=== PATIENT | female | born 1990 | race American Indian/Alaskan Native ===

== ENCOUNTER 2017-06-06 10:47 | Emergency (ER) | payer SELFPAY ==
[2017-06-06 11:36] VITALS: BP 120/81
--- NOTE | 2017-06-06 13:07 | Emergency Department Report ---
Blank Doc - Documentation Documentation: 27-year-old female with history of migraines and anemia presents to the hospital with complaints of bilateral breast soreness 2 months. She's also had white intermittent nipple drainage on the left when she squeezes her breasts. No fever, one, erythema reported. Patient also has some lower abdominal discomfort. Negative test 2 weeks ago. Started her menstrual cycle yesterday yesterday. She does not have a SENIOR SUSTAINABILITY CONSULTANT doctor. Focused exam Bladder breasts without gross abnormality. Patient expresses white discharge from the left nipple. No focal swelling, or erythema. Minimal suprapubic tenderness Labs ordered UA Urine Mid-level to see
[2017-06-06 13:31] LABS: Bilirubin,Urine NEG (Negative); Blood,Urine MOD (Negative); Color,Urine Yellow (Yellow); Mucus,Urine FEW /HPF; Protein,Urine <15 mg/dL mg/dL (Negative); Urobilinogen,Urine < 2.0 mg/dL (<2.0)
[2017-06-06 13:32] LABS: HCG Qualitative,Urine Negative (Negative)
--- NOTE | 2017-06-06 15:10 | Emergency Department Report ---
ED General Adult HPI - General Chief complaint: Urogenital-Female Stated complaint: SORE BREASTS Time Seen by Provider: 06/06/17 12:59 Source: patient Mode of arrival: Ambulatory Limitations: No Limitations - History of Present Illness Initial comments: 27-year-old female with history of migraines and anemia presents to the hospital with complaints of bilateral breast soreness 2 months. She's also had white intermittent nipple drainage on the left when she squeezes her breasts. No fever, one, erythema reported. Patient also has some lower abdominal discomfort. Negative test 2 weeks ago. Started her menstrual cycle yesterday. She does not have a TRACK OILER doctor nor does she have a primary care physician. She reports breast pain is 7 out of 10 and feels sore and this is intermittent. Pain is worse with touch.. MD Complaint: nipple drainage and breast soreness Onset/Timin -: month(s) Radiation: non-radiation Severity scale (0 -10): 7 Quality: other (sore) Consistency: intermittent Improves with: rest Worsens with: other (Palpation) Associated Symptoms: denies: confusion, chest pain, cough, diaphoresis, fever/ chills, headaches, loss of appetite, malaise, nausea/vomiting, rash, seizure, shortness of breath, syncope, weakness, other Treatments Prior to Arrival: none - Related Data Home Medications Medication Instructions Recorded Confirmed Last Taken No Known Home Medications [No 04/28/15 04/28/15 Unknown Reported Home Medications] Allergies Allergy/AdvReac Type Severity Reaction Status Date / Time ibuprofen Allergy Swelling Verified 04/28/15 16:00 ED Review of Systems ROS: Stated complaint: SORE BREASTS Other details as noted in HPI Comment: All other systems reviewed and negative Constitutional: no symptoms reported ENT: denies: throat pain Respiratory: no symptoms reported Cardiovascular: denies: chest pain, palpitations, dyspnea on exertion, edema, syncope, paroxysmal nocturnal dyspnea Gastrointestinal: denies: abdominal pain, nausea, vomiting, diarrhea, constipation, hematemesis, melena, hematochezia Genitourinary: other (nipple soreness and drainage). denies: urgency, dysuria, hematuria, discharge, abnormal menses Musculoskeletal: denies: back pain, arthralgia Skin: denies: rash Neurological: denies: headache ED Past Medical Hx - Past Medical History Previous Medical History?: Yes Hx Headaches / Migraines: Yes Additional medical history: anemia - Surgical History Past Surgical History?: Yes Additional Surgical History: control implant, Implenon removed - Family History Family history: cancer (paternal family history of cancer) - Social History Smoking Status: Current Every Day Smoker Substance Use Type: Alcohol - Medications Home Medications: Home Medications Medication Instructions Recorded Confirmed Last Taken Type No Known Home Medications [No 04/28/15 04/28/15 Unknown History Reported Home Medications] ED Physical Exam - General Limitations: No Limitations General appearance: alert, in no apparent distress - Head Head exam: Present: atraumatic, normocephalic, normal inspection - Eye Eye exam: Present: normal appearance, PERRL, EOMI Pupils: Present: normal accommodation - ENT ENT exam: Present: normal exam, normal orophraynx, mucous membranes moist - Neck Neck exam: Present: normal inspection, full ROM. Absent: tenderness, lymphadenopathy - Respiratory Respiratory exam: Present: normal lung sounds bilaterally. Absent: respiratory distress, chest wall tenderness - Cardiovascular Cardiovascular Exam: Present: regular rate, normal rhythm, normal heart sounds - GI/Abdominal GI/Abdominal exam: Present: soft, normal bowel sounds. Absent: distended, tenderness, guarding, rebound, rigid - Extremities Exam Extremities exam: Present: normal inspection, full ROM, normal capillary refill , other (clubbing, cyanosis or edema. +2+ distal extremities and no neurovascular compromise). Absent: tenderness, pedal edema, joint swelling, calf tenderness - Back Exam Back exam: Present: normal inspection, full ROM, other (ambulates without any difficulties). Absent: tenderness, CVA tenderness (R), CVA tenderness (L), muscle spasm, paraspinal tenderness, vertebral tenderness, rash noted - Neurological Exam Neurological exam: Present: alert, oriented X3, normal gait - Psychiatric Psychiatric exam: Present: normal affect, normal mood - Skin Skin exam: Present: warm, dry, intact, normal color. Absent: rash - Other Other exam information: Breast EXAM: Andrew Breast exam breast is symmetrical and sitting position. No bulging noted. Skin has no dimpling or retraction, no edema, ulceration or erythema. No eczema note to breasts. Nipples are symmetric without retraction. No nipple crusting .patient with left nipple discharge, white patient in color with palpation. No odor noted.. No palpable mass , no erythema. No adenopathy to regional lymph nodes to include supraclavicular, infraclavicular and axillary area. ED Course Vital Signs 06/06/17 11:32 Temperature 97.9 F Pulse Rate 60 Respiratory 18 Rate Blood Pressure 120/81 O2 Sat by Pulse 100 Oximetry - Reevaluation(s) Reevaluation #1: 06/06/17 15:57 Patient stable throughout ED stay. ED Medical Decision Making - Lab Data Urinalysis negative except patient with moderate amount of blood but she is currently on her period which started yesterday Urine test is negative - Medical Decision Making ED course: Patient here reports that she has bilateral breast pain and discharge 2 months. Physical findings for normal breast exam except she has scant amount of whitish discharge from her left nipple with palpation. I discussed patient's physical findings and also her urinalysis and test. I also discussed follow-up to include mammogram at this [facility]. She voiced understanding and and nurse reported after I spoke with patient that patient left after instructions. Critical care attestation.: If time is entered above; I have spent that time in minutes in the direct care of this critically ill patient, excluding procedure time. ED Disposition Clinical Impression: Mastalgia in female, Discharge from nipple Disposition: [id number] TO HOME OR SELFCARE Is pt being admited?: No Does the pt Need Aspirin: No Condition: Stable Instructions: Breast Fullness Versus Breast Engorgement (ED) Additional Instructions: Please follow up with [facility] regarding left nipple discharge and bilateral breast soreness that been ongoing for 2 months Take Motrin [id number] per dosing chart Dilantin and distal help with soreness See discharge instruction and mammogram You will need to have mammogram done that will be ordered by [facility] Referrals: [facility] [Outside] - 06/08/17 NORAH YANES MD [Staff Physician] - 06/08/17 Forms: Work/School Release Form(ED)
== END 2017-06-06 15:47 | disposition home or self-care (01) ==
LOC: ED 10:47
DX: N64.4 Mastodynia (principal); G43.909 Migraine, unspecified, not intractable, without status migrainosus; F17.200 Nicotine dependence, unspecified, uncomplicated; Z88.6 Allergy status to analgesic agent
CPT/HCPCS: 81001; 81025; 99283

== ENCOUNTER 2017-08-26 20:40 | Emergency (ER) | payer SELFPAY ==
[2017-08-26] MEDS ORDERED: NACL 0.9% 1000 ML 1,000 ML IV ONE (21:02)
[2017-08-26 21:17] LABS: Basophils % (Auto) 0.7 % (0.0-1.8); Eosinophils % (Auto) 0.6 % (0.0-4.3); Hemoglobin 12.6 gm/dl (10.1-14.3); Lymphocytes # (Auto) 1.8 K/mm3 (1.2-5.4); Lymphocytes % (Auto) 30.6 % (13.4-35.0); Mean Corpuscular HGB Conc 34 % (30-34); Mean Corpuscular Hemoglobin 30 pg (28-32); Mean Corpuscular Volume 89 fl (79-97); Monocytes # (Auto) 0.4 K/mm3 (0.0-0.8); Monocytes % (Auto) 6.9 % (0.0-7.3); Platelet Count 260 K/mm3 (140-440); Red Blood Count 4.16 M/mm3 (3.65-5.03)
[2017-08-26 21:35] LABS: Alanine Aminotransferase 12 units/L (7-56); Albumin 4.7 g/dL (3.9-5); BUN/Creatinine Ratio 10; Blood Urea Nitrogen 8 mg/dL (7-17); Calcium 10.1 mg/dL (8.4-10.2); Hemolysis Index 21; Lipase 22 units/L (13-60)
[2017-08-26] MEDS ORDERED: TYLENOL ONE (21:49)
[2017-08-26 22:11] LABS: Bacteria,Urine 1+ /HPF (Negative); Bilirubin,Urine NEG (Negative); Blood,Urine MOD (Negative); Color,Urine Yellow (Yellow); Mucus,Urine FEW /HPF
[2017-08-26] MEDS ORDERED: TYLENOL PO ONE (22:51)
--- NOTE | 2017-08-26 23:41 | Ultrasound Report ---
FINAL REPORT EXAM: US TRANSVAGINAL HISTORY: severe pelvic pain abn bleeding TECHNIQUE: Ultrasound pelvis transvaginal with pulsed and color Doppler evaluation PRIORS: None. FINDINGS: Uterus is 6.8 x 3.5 x 3.8 centimeters No focal myometrial abnormality identified Endometrial thickness is 0.6 centimeters Right ovary is 2.6 x 2.1 x 2.6 centimeters. Left ovary is 3.1 x 2.8 x 2.6 centimeters. Normal vascular flow on pulsed and color Doppler evaluation. The left ovary is 3.1 x 2.8 x 2.6 centimeters. No abnormal mass or cyst identified. Normal flow on pulsed and color Doppler evaluation. No free fluid identified within the cul-de-sac. IMPRESSION: Normal pelvic ultrasound
--- NOTE | 2017-08-26 23:42 | Ultrasound Report ---
FINAL REPORT EXAM: US PELVIC COMPLETE HISTORY: severe pelvic pain abn bleeding TECHNIQUE: Ultrasound pelvis transabdominal pulsed and color Doppler evaluation PRIORS: None. FINDINGS: Uterus is 6.8 x 3.5 x 3.8 centimeters No focal myometrial abnormality identified Endometrial thickness is 0.6 centimeters Right ovary is 2.6 x 2.1 x 2.6 centimeters. Left ovary is 3.1 x 2.8 x 2.6 centimeters. Normal vascular flow on pulsed and color Doppler evaluation. The left ovary is 3.1 x 2.8 x 2.6 centimeters. No abnormal mass or cyst identified. Normal flow on pulsed and color Doppler evaluation. No free fluid identified within the cul-de-sac. IMPRESSION: Normal pelvic ultrasound
[2017-08-27] MEDS ORDERED: LEVAQUIN PO ONE (01:15)
--- NOTE | 2017-08-27 01:19 | Emergency Department Report ---
ED Abdominal Pain HPI - General Chief Complaint: Abdominal Pain Stated Complaint: ABDOMINAL PAIN Time Seen by Provider: 08/27/17 00:44 Source: patient Mode of arrival: Ambulatory Limitations: No Limitations - History of Present Illness Initial Comments: Ms Gleason is a 27 year-old woman who presents with abdominal pain. Had sudden onset of lower abdominal pain that radiates down her right leg. this evening. No pain with urination. No back pain. Endorses n/v. Normal bowel movements. No blood in urine. just started cycle today. Was just treated for UTI with bactrim. No other complaints MD Complaint: abdominal pain -: Sudden Location: RLQ, suprapubic Migration to: other (leg) Severity: moderate Severity scale (0 -10): 9 Quality: sharp Consistency: constant Improves With: nothing Worsens With: nothing - Related Data LMP Date: 08/26/17 Home Medications Medication Instructions Recorded Confirmed Last Taken No Known Home Medications [No 04/28/15 04/28/15 Unknown Reported Home Medications] Allergies Allergy/AdvReac Type Severity Reaction Status Date / Time ibuprofen Allergy Swelling Verified 04/28/15 16:00 ED Review of Systems ROS: Stated complaint: ABDOMINAL PAIN Other details as noted in HPI Comment: All other systems reviewed and negative ED Past Medical Hx - Past Medical History Hx Headaches / Migraines: Yes Additional medical history: anemia - Surgical History Additional Surgical History: control implant, Implenon removed - Social History Smoking Status: Current Every Day Smoker Substance Use Type: Alcohol - Medications Home Medications: Home Medications Medication Instructions Recorded Confirmed Last Taken Type No Known Home Medications [No 04/28/15 04/28/15 Unknown History Reported Home Medications] ED Physical Exam - General Limitations: No Limitations General appearance: alert, in no apparent distress - Head Head exam: Present: atraumatic, normocephalic - Eye Eye exam: Present: normal appearance - ENT ENT exam: Present: normal exam, mucous membranes moist - Neck Neck exam: Present: normal inspection. Absent: tenderness - Respiratory Respiratory exam: Present: normal lung sounds bilaterally. Absent: respiratory distress, wheezes, rales - Cardiovascular Cardiovascular Exam: Present: regular rate, normal rhythm. Absent: systolic murmur, diastolic murmur, rubs, gallop - GI/Abdominal GI/Abdominal exam: Present: soft, tenderness, other (suprapubic ttp. No RLQ or LLQ ttp). Absent: distended, rebound - Extremities Exam Extremities exam: Present: normal inspection, full ROM. Absent: tenderness, pedal edema, joint swelling - Back Exam Back exam: Present: normal inspection - Neurological Exam Neurological exam: Present: alert, oriented X3, normal gait. Absent: motor sensory deficit - Psychiatric Psychiatric exam: Present: normal affect, normal mood - Skin Skin exam: Present: warm, dry, intact, normal color. Absent: rash ED Course Vital Signs 08/26/17 08/27/17 22:51 01:02 Temperature 98.1 F Pulse Rate 68 Respiratory 18 16 Rate Blood Pressure 104/61 [Left] O2 Sat by Pulse 99 Oximetry ED Medical Decision Making - Lab Data Result diagrams: 08/26/17 21:05 08/26/17 21:05 Lab Results 08/26/17 08/26/17 08/26/17 Range/Units 21:05 21:05 21:05 WBC 5.8 (4.5-11.0) K/mm3 RBC 4.16 (3.65-5.03) M/mm3 Hgb 12.6 (10.1-14.3) gm/dl Hct 37.0 (30.3-42.9) % MCV 89 (79-97) fl MCH 30 (28-32) pg MCHC 34 (30-34) % RDW 14.0 (13.2-15.2) % Plt Count 260 (140-440) K/mm3 Lymph % (Auto) 30.6 (13.4-35.0) % [place] % (Auto) 6.9 (0.0-7.3) % Eos % (Auto) 0.6 (0.0-4.3) % Baso % (Auto) 0.7 (0.0-1.8) % Lymph # 1.8 (1.2-5.4) K/mm3 [place] # 0.4 (0.0-0.8) K/mm3 Eos # 0.0 (0.0-0.4) K/mm3 Baso # 0.0 (0.0-0.1) K/mm3 Seg Neutrophils % 61.2 (40.0-70.0) % Seg Neutrophils # 3.6 (1.8-7.7) K/mm3 Sodium 142 (137-145) mmol/L Potassium 4.5 (3.6-5.0) mmol/L Chloride 100.7 (98-107) mmol/L Carbon Dioxide 23 (22-30) mmol/L Anion Gap 23 mmol/L BUN 8 (7-17) mg/dL Creatinine 0.8 (0.7-1.2) mg/dL Estimated GFR > 60 ml/min BUN/Creatinine Ratio 10 % Glucose 110 H (65-100) mg/dL Calcium 10.1 (8.4-10.2) mg/dL Total Bilirubin 0.20 (0.1-1.2) mg/dL AST 23 (5-40) units/L ALT 12 (7-56) units/L Alkaline Phosphatase 45 (35-129) units/L Total Protein 7.9 (6.3-8.2) g/dL Albumin 4.7 (3.9-5) g/dL Albumin/Globulin Ratio 1.5 % Lipase 22 (13-60) units/L HCG, Quant < 2 (0-4) mIU/mL Urine Color (Yellow) Urine Turbidity (Clear) Urine pH (5.0-7.0) Ur Specific [place] (1.003-1.030) Urine Protein (Negative) mg/dL Urine Glucose (UA) (Negative) mg/dL Urine Ketones (Negative) mg/dL Urine Blood (Negative) Urine Nitrite (Negative) Urine Bilirubin (Negative) Urine Urobilinogen (<2.0) mg/dL Ur Leukocyte Esterase (Negative) Urine WBC (Auto) (0.0-6.0) /HPF Urine RBC (Auto) (0.0-6.0) /HPF U Epithel Cells (Auto) (0-13.0) /HPF Urine Bacteria (Auto) (Negative) /HPF Urine Mucus /HPF 08/26/17 Range/Units 21:35 WBC (4.5-11.0) K/mm3 RBC (3.65-5.03) M/mm3 Hgb (10.1-14.3) gm/dl Hct (30.3-42.9) % MCV (79-97) fl MCH (28-32) pg MCHC (30-34) % RDW (13.2-15.2) % Plt Count (140-440) K/mm3 Lymph % (Auto) (13.4-35.0) % [place] % (Auto) (0.0-7.3) % Eos % (Auto) (0.0-4.3) % Baso % (Auto) (0.0-1.8) % Lymph # (1.2-5.4) K/mm3 [place] # (0.0-0.8) K/mm3 Eos # (0.0-0.4) K/mm3 Baso # (0.0-0.1) K/mm3 Seg Neutrophils % (40.0-70.0) % Seg Neutrophils # (1.8-7.7) K/mm3 Sodium (137-145) mmol/L Potassium (3.6-5.0) mmol/L Chloride (98-107) mmol/L Carbon Dioxide (22-30) mmol/L Anion Gap mmol/L BUN (7-17) mg/dL Creatinine (0.7-1.2) mg/dL Estimated GFR ml/min BUN/Creatinine Ratio % Glucose (65-100) mg/dL Calcium (8.4-10.2) mg/dL Total Bilirubin (0.1-1.2) mg/dL AST (5-40) units/L ALT (7-56) units/L Alkaline Phosphatase (35-129) units/L Total Protein (6.3-8.2) g/dL Albumin (3.9-5) g/dL Albumin/Globulin Ratio % Lipase (13-60) units/L HCG, Quant (0-4) mIU/mL Urine Color Yellow (Yellow) Urine Turbidity Clear (Clear) Urine pH 7.0 (5.0-7.0) Ur Specific [place] 1.018 (1.003-1.030) Urine Protein 30 mg/dl (Negative) mg/dL Urine Glucose (UA) Neg (Negative) mg/dL Urine Ketones 20 (Negative) mg/dL Urine Blood Mod (Negative) Urine Nitrite Neg (Negative) Urine Bilirubin Neg (Negative) Urine Urobilinogen 2.0 (<2.0) mg/dL Ur Leukocyte Esterase Mod (Negative) Urine WBC (Auto) 9.0 H (0.0-6.0) /HPF Urine RBC (Auto) 65.0 (0.0-6.0) /HPF U Epithel Cells (Auto) 1.0 (0-13.0) /HPF Urine Bacteria (Auto) 1+ (Negative) /HPF Urine Mucus Few /HPF - Medical Decision Making Ms Gleasno is a 27 year-old woman who presents with acute onset lower abdominal pain at 6pm tonight. No vaginal d/c. just started cycle. Recent UTI. Exam with isolated suprapubic ttp. No RLQ or LLQ ttp, even to deep palpation. No CVA ttp. Suspect this is UTI vs consitpation vs vaginitis. much less likely vaginitis based on history. UA with bacteria, leuk esterase, WBCs and only 1 epithelial. Suspect this is UTI. Will treat with fluorquinolone. Do not have cipro here. dfirst dose levaquin here, home with cipro BID x 7 days and pcp follow-up. LE exam wnl, full ROM hip, knees. NV itnact. Critical care attestation.: If time is entered above; I have spent that time in minutes in the direct care of this critically ill patient, excluding procedure time. ED Disposition Clinical Impression: Urinary tract infection Qualifiers: Urinary tract infection type: acute cystitis Hematuria presence: with hematuria Qualified Code(s): N30.01 - Acute cystitis with hematuria Disposition: - TO HOME OR SELFCARE Is pt being admited?: No Condition: Stable Instructions: Abdominal Pain (ED), Urinary Tract Infection in Women (ED) Referrals: PRIMARY CARE, [Primary Care Provider] - 3-5 Days
[2017-08-27 02:28] VITALS: BP 116/73
== END 2017-08-27 02:34 | disposition home or self-care (01) ==
LOC: ED 20:40
DX: N39.0 Urinary tract infection, site not specified (principal); G43.909 Migraine, unspecified, not intractable, without status migrainosus; F17.200 Nicotine dependence, unspecified, uncomplicated; Z88.6 Allergy status to analgesic agent
CPT/HCPCS: 36415; 76830; 76856; 80053; 81001; 83690; 84702; 85025; 99284

== ENCOUNTER 2018-03-16 23:27 | Emergency (ER) | payer SELFPAY ==
[2018-03-17 00:37] VITALS: BP 110/64
[2018-03-17] MEDS ORDERED: ZOFRAN ODT PO ONE (00:44)
[2018-03-17] MEDS ORDERED: ZOFRAN ODT ONE (00:44)
[2018-03-17] MEDS ORDERED: TYLENOL PO ONE (03:10)
[2018-03-17] MEDS ORDERED: TYLENOL ONE (03:17)
[2018-03-17] MEDS ORDERED: TORADOL IV ONE (05:01)
[2018-03-17] MEDS ORDERED: REGLAN IV ONE (05:01)
[2018-03-17] MEDS ORDERED: BENADRYL IV ONE (05:01)
--- NOTE | 2018-03-17 05:50 | Emergency Department Report ---
ED Headache HPI - General Chief Complaint: Headache Stated Complaint: HEADACHE AND VONITTING Time Seen by Provider: 03/17/18 05:01 - History of Present Illness Initial Comments: 28-year-old -Mal[place] female comes in reporting that she has a headache with nausea and vomiting for 3 hours. Patient denies any trauma. She reports it started about 8:00. She denies any similar headaches. She denies any fever or chills. She has taken nothing for pain. Patient reports that the headache started just probably then I got tight and then he got dull with intense pounding. Patient was given Tylenol in triage which she reports did not help. Patient reports that the light makes her headache more intense. Timing/Duration: 1-3 hours Quality: pressure, throbbing Head Injury Location: global Recent Head Trauma: no recent headache/trauma Modifying Factors: improves with: exposure to light Associated Symptoms: nausea/vomiting. denies: fever/chills, nasal congestion, nasal drainage, seizures, sinus infection, stiff neck, vision changes Allergies/Adverse Reactions: Allergies ibuprofen Allergy (Verified 04/28/15 16:00) Swelling Home Medications: Ambulatory Orders Ciprofloxacin HCl [Cipro] 500 mg PO BID 7 Days #13 tablet 08/27/17 traMADol [Ultram 50 MG tab] 50 mg PO Q6HR PRN #12 tablet 03/17/18 ED Review of Systems ROS: Stated complaint: HEADACHE AND VONITTING Other details as noted in HPI Comment: All other systems reviewed and negative Gastrointestinal: nausea, vomiting Neurological: headache ED Past Medical Hx - Past Medical History Previous Medical History?: Yes Hx Headaches / Migraines: Yes Additional medical history: anemia - Surgical History Past Surgical History?: Yes Additional Surgical History: control implant, Implenon removed - Social History Smoking Status: Former Smoker Substance Use Type: Marijuana - Medications Home Medications: Home Medications Medication Instructions Recorded Confirmed Last Taken Type Ciprofloxacin HCl [Cipro] 500 mg PO BID 7 Days #13 tablet 08/27/17 Unknown Rx traMADol [Ultram 50 MG tab] 50 mg PO Q6HR PRN #12 tablet 03/17/18 Unknown Rx ED Physical Exam - General Limitations: No Limitations General appearance: alert, in no apparent distress - Head Head exam: Present: atraumatic, normocephalic - Eye Eye exam: Present: EOMI - ENT ENT exam: Present: mucous membranes moist - Respiratory Respiratory exam: Present: normal lung sounds bilaterally. Absent: respiratory distress - Cardiovascular Cardiovascular Exam: Present: regular rate, normal rhythm. Absent: systolic murmur, diastolic murmur, rubs, gallop - Back Exam Back exam: Present: normal inspection - Neurological Exam Neurological exam: Present: alert, oriented X3 - Expanded Neurological Exam Expanded Cranial nerves: EOM's Intact: Normal, Gag Reflex: Normal, Tongue Deviation: Normal, Nystagmus: Normal, Facial Sensation: Normal, Facial Palsy with Forehead Movement: Normal, Facial Palsy without Forehead Movement: Normal Cerebellar function: Finger to Nose: Normal, Heel to [place]: Normal, Romberg: Normal Upper motor neuron: Anatoly Neglect: Normal, Pronator Drift: Normal, Babinski Sign: Normal, Sensory Extinction: Normal Sensory exam: Upper Extremity Light Touch: Normal, Upper Extremity Pin Prick: Normal, Upper Extremity Temperature: Normal, UE 2 Point Discrimination: Normal, Lower Extremity Light Touch: Normal, Lower Extremity Pin Prick: Normal, Lower Extremity Temperature: Normal, LE 2 Point Discrimination: Normal Motor strength exam: RUE: 5, LUE: 5, RLE: 5, LLE: 5 Best Eye Response (Mal): (4) open spontaneously Best Motor Response ([place]): (6) obeys commands Best Verbal Response ([place]): (5) oriented Mal Total: 15 ED Course Vital Signs 03/16/18 03/17/18 03/17/18 23:32 03:20 04:20 Temperature 97.6 F Pulse Rate 64 Respiratory 20 18 18 Rate Blood Pressure 110/64 O2 Sat by Pulse 100 Oximetry ED Medical Decision Making - Medical Decision Making Patient has been evaluated by this provider in fast track. Patient's place IV for IV Benadryl, IV Toradol in IV Reglan. She reports the headache has improved a little. Critical care attestation.: If time is entered above; I have spent that time in minutes in the direct care of this critically ill patient, excluding procedure time. ED Disposition Clinical Impression: Headache Qualifiers: Headache type: unspecified Headache chronicity pattern: acute headache Intractability: intractable Qualified Code(s): R51 - Headache Disposition: - TO HOME OR SELFCARE Is pt being admited?: No Does the pt Need Aspirin: No Condition: Stable Instructions: Acute Headache (ED) Additional Instructions: Please take pain medication as prescribed. Please increase her water intake. Follow up with her primary care provider if his symptoms persist or gets worse. Prescriptions: traMADol [Ultram 50 MG tab] 50 mg PO Q6HR PRN #12 tablet PRN Reason: Pain Referrals: CRISELDA ROJAS MD [Primary Care Provider] - 3-5 Days Forms: Accompanied Note, Work/School Release Form(ED)
== END 2018-03-17 06:47 | disposition home or self-care (01) ==
LOC: ED 23:27
DX: R51 Headache (principal)
CPT/HCPCS: 96374; 96375; 99283; J1200; J1885; J2765; Q0162

== ENCOUNTER 2019-06-22 01:42 | Emergency (ER) | payer SELFPAY ==
[2019-06-22 02:04] LABS: Basophils % (Auto) 0.8 % (0.0-1.8); Eosinophils % (Auto) 0.2 % (0.0-4.3); Hematocrit 33.6 % (30.3-42.9); Hemoglobin 11.5 gm/dl (10.1-14.3); Lymphocytes # (Auto) 1.6 K/mm3 (1.2-5.4); Lymphocytes % (Auto) 28.1 % (13.4-35.0); Mean Corpuscular HGB Conc 34 % (30-34); Mean Corpuscular Volume 91 fl (79-97); Monocytes # (Auto) 0.4 K/mm3 (0.0-0.8); Monocytes % (Auto) 7.4 % (0.0-7.3); Platelet Count 277 K/mm3 (140-440); Red Blood Count 3.68 M/mm3 (3.65-5.03); Red Cell Distribution Width 14.6 % (13.2-15.2)
[2019-06-22 02:27] LABS: Alanine Aminotransferase 7 units/L (7-56); Albumin 4.5 g/dL (3.9-5); BUN/Creatinine Ratio 14; Blood Urea Nitrogen 10 mg/dL (7-17); Hemolysis Index 32
[2019-06-22 02:35] LABS: Bilirubin,Urine NEG (Negative); Blood,Urine SM (Negative); Color,Urine Yellow (Yellow); Mucus,Urine 3+ /HPF; Protein,Urine <15 mg/dL mg/dL (Negative)
--- NOTE | 2019-06-22 02:55 | Emergency Department Report ---
ED Abdominal Pain HPI - General Chief Complaint: Abdominal Pain Stated Complaint: ABD PAIN/BACK PAIN/VAGINAL PAIN Time Seen by Provider: 06/22/19 02:15 Source: patient Mode of arrival: Ambulatory Limitations: No Limitations - History of Present Illness Initial Comments: This is a pleasant 29-year-old female presents emergency department with chief complaint of lower abdominal pain that will occasionally radiate to the top of her abdomen over the past few days. She reports she has been having nausea and vomiting that is nonbloody nonbilious over the past 2 days the abdominal pain increased this morning. She has a past medical history of anemia and migraines. She is not on any medications currently. She has allergies to ibuprofen. She denies any associated fever, chills, night sweats, headache, dizziness, blurry vision, hematemesis, melena, hematochezia, chest pain, shortness of breath, diarrhea, or any other associated symptoms. - Related Data Previous Rx's Medication Instructions Recorded Last Taken Type Ciprofloxacin HCl [Cipro] 500 mg PO BID 7 Days #13 tablet 08/27/17 Unknown Rx traMADoL [Ultram 50 MG tab] 50 mg PO Q6HR PRN #12 tablet 03/17/18 Unknown Rx metroNIDAZOLE [Flagyl TAB] 2,000 mg PO ONCE #4 tablet 06/22/19 Unknown Rx traMADoL [Ultram 50 MG tab] 50 mg PO Q6HR PRN #12 tablet 06/22/19 Unknown Rx Allergies Allergy/AdvReac Type Severity Reaction Status Date / Time ibuprofen Allergy Swelling Verified 04/28/15 16:00 ED Review of Systems ROS: Stated complaint: ABD PAIN/BACK PAIN/VAGINAL PAIN Other details as noted in HPI Comment: All other systems reviewed and negative Constitutional: denies: chills, fever Eyes: denies: eye pain, eye discharge, vision change ENT: denies: ear pain, throat pain Respiratory: denies: cough, shortness of breath, wheezing Cardiovascular: denies: chest pain, palpitations Endocrine: no symptoms reported Gastrointestinal: as per HPI, abdominal pain, nausea, vomiting. denies: diarrhea Genitourinary: denies: urgency, dysuria, discharge Musculoskeletal: denies: back pain, joint swelling, arthralgia Skin: denies: rash, lesions Neurological: denies: headache, weakness, paresthesias Psychiatric: denies: anxiety, depression Hematological/Lymphatic: denies: easy bleeding, easy bruising ED Past Medical Hx - Past Medical History Previous Medical History?: Yes Hx Headaches / Migraines: Yes Additional medical history: anemia - Surgical History Past Surgical History?: Yes Additional Surgical History: control implant, Implenon removed - Social History Smoking Status: Never Smoker - Medications Home Medications: Home Medications Medication Instructions Recorded Confirmed Last Taken Type Ciprofloxacin HCl [Cipro] 500 mg PO BID 7 Days #13 tablet 08/27/17 Unknown Rx traMADoL [Ultram 50 MG tab] 50 mg PO Q6HR PRN #12 tablet 03/17/18 Unknown Rx metroNIDAZOLE [Flagyl TAB] 2,000 mg PO ONCE #4 tablet 06/22/19 Unknown Rx traMADoL [Ultram 50 MG tab] 50 mg PO Q6HR PRN #12 tablet 06/22/19 Unknown Rx ED Physical Exam - General Limitations: No Limitations General appearance: alert, in no apparent distress - Head Head exam: Present: atraumatic, normocephalic - Eye Eye exam: Present: normal appearance, PERRL, EOMI - ENT ENT exam: Present: normal exam, mucous membranes moist - Neck Neck exam: Present: normal inspection, full ROM. Absent: tenderness, meningismus - Respiratory Respiratory exam: Present: normal lung sounds bilaterally. Absent: respiratory distress, wheezes, rales, rhonchi, stridor - Cardiovascular Cardiovascular Exam: Present: regular rate, normal rhythm, normal heart sounds. Absent: systolic murmur, diastolic murmur, rubs, gallop - GI/Abdominal GI/Abdominal exam: Present: soft, tenderness (TTP to RLQ and LLQ, no rebound or guarding, negative psoas sign bilaterally ), normal bowel sounds. Absent: distended, guarding, rebound, rigid - Rectal Rectal exam: Present: deferred - External exam: Present: normal external exam. Absent: erythema, swelling, lesions Speculum exam: Present: normal speculum exam. Absent: erythema, vaginal discharge, cervical discharge, vaginal bleeding Bi-manual exam: Present: normal bi-manual exam, other ( exam chaperoned by DANE Polanco ). Absent: cervical motion tendernes, adnexal tenderness, adnexal mass - Extremities Exam Extremities exam: Present: normal inspection - Back Exam Back exam: Present: normal inspection - Neurological Exam Neurological exam: Present: alert, oriented X3 - Psychiatric Psychiatric exam: Present: normal affect, normal mood - Skin Skin exam: Present: warm, dry, intact, normal color. Absent: rash ED Medical Decision Making - Lab Data Result diagrams: 06/22/19 01:57 06/22/19 01:57 Lab Results 06/22/19 06/22/19 06/22/19 Range/Units 01:57 01:57 01:57 WBC 5.5 (4.5-11.0) K/mm3 RBC 3.68 (3.65-5.03) M/mm3 Hgb 11.5 (10.1-14.3) gm/dl Hct 33.6 (30.3-42.9) % MCV 91 (79-97) fl MCH 31 (28-32) pg MCHC 34 (30-34) % RDW 14.6 (13.2-15.2) % Plt Count 277 (140-440) K/mm3 Lymph % (Auto) 28.1 (13.4-35.0) % [place] % (Auto) 7.4 H (0.0-7.3) % Eos % (Auto) 0.2 (0.0-4.3) % Baso % (Auto) 0.8 (0.0-1.8) % Lymph # 1.6 (1.2-5.4) K/mm3 [place] # 0.4 (0.0-0.8) K/mm3 Eos # 0.0 (0.0-0.4) K/mm3 Baso # 0.0 (0.0-0.1) K/mm3 Seg Neutrophils % 63.5 (40.0-70.0) % Seg Neutrophils # 3.5 (1.8-7.7) K/mm3 Sodium 140 (137-145) mmol/L Potassium 3.9 (3.6-5.0) mmol/L Chloride 103.9 (98-107) mmol/L Carbon Dioxide 23 (22-30) mmol/L Anion Gap 17 mmol/L BUN 10 (7-17) mg/dL Creatinine 0.7 (0.7-1.2) mg/dL Estimated GFR > 60 ml/min BUN/Creatinine Ratio 14 % Glucose 106 H (65-100) mg/dL Calcium 9.0 (8.4-10.2) mg/dL Total Bilirubin 0.20 (0.1-1.2) mg/dL AST 18 (5-40) units/L ALT 7 (7-56) units/L Alkaline Phosphatase 39 (35-129) units/L Total Protein 7.5 (6.3-8.2) g/dL Albumin 4.5 (3.9-5) g/dL Albumin/Globulin Ratio 1.5 % Lipase 9 L (13-60) units/L HCG, Qual Negative (Negative) Urine Color (Yellow) Urine Turbidity (Clear) Urine pH (5.0-7.0) Ur Specific [place] (1.003-1.030) Urine Protein (Negative) mg/dL Urine Glucose (UA) (Negative) mg/dL Urine Ketones (Negative) mg/dL Urine Blood (Negative) Urine Nitrite (Negative) Urine Bilirubin (Negative) Urine Urobilinogen (<2.0) mg/dL Ur Leukocyte Esterase (Negative) Urine WBC (Auto) (0.0-6.0) /HPF Urine RBC (Auto) (0.0-6.0) /HPF U Epithel Cells (Auto) (0-13.0) /HPF Urine Mucus /HPF 06/22/19 Range/Units Unknown WBC (4.5-11.0) K/mm3 RBC (3.65-5.03) M/mm3 Hgb (10.1-14.3) gm/dl Hct (30.3-42.9) % MCV (79-97) fl MCH (28-32) pg MCHC (30-34) % RDW (13.2-15.2) % Plt Count (140-440) K/mm3 Lymph % (Auto) (13.4-35.0) % [place] % (Auto) (0.0-7.3) % Eos % (Auto) (0.0-4.3) % Baso % (Auto) (0.0-1.8) % Lymph # (1.2-5.4) K/mm3 [place] # (0.0-0.8) K/mm3 Eos # (0.0-0.4) K/mm3 Baso # (0.0-0.1) K/mm3 Seg Neutrophils % (40.0-70.0) % Seg Neutrophils # (1.8-7.7) K/mm3 Sodium (137-145) mmol/L Potassium (3.6-5.0) mmol/L Chloride (98-107) mmol/L Carbon Dioxide (22-30) mmol/L Anion Gap mmol/L BUN (7-17) mg/dL Creatinine (0.7-1.2) mg/dL Estimated GFR ml/min BUN/Creatinine Ratio % Glucose (65-100) mg/dL Calcium (8.4-10.2) mg/dL Total Bilirubin (0.1-1.2) mg/dL AST (5-40) units/L ALT (7-56) units/L Alkaline Phosphatase (35-129) units/L Total Protein (6.3-8.2) g/dL Albumin (3.9-5) g/dL Albumin/Globulin Ratio % Lipase (13-60) units/L HCG, Qual (Negative) Urine Color Yellow (Yellow) Urine Turbidity Clear (Clear) Urine pH 5.0 (5.0-7.0) Ur Specific [place] 1.025 (1.003-1.030) Urine Protein <15 mg/dl (Negative) mg/dL Urine Glucose (UA) Neg (Negative) mg/dL Urine Ketones Tr (Negative) mg/dL Urine Blood Sm (Negative) Urine Nitrite Neg (Negative) Urine Bilirubin Neg (Negative) Urine Urobilinogen 4.0 (<2.0) mg/dL Ur Leukocyte Esterase Sm (Negative) Urine WBC (Auto) 16.0 H (0.0-6.0) /HPF Urine RBC (Auto) 7.0 (0.0-6.0) /HPF U Epithel Cells (Auto) 10.0 (0-13.0) /HPF Urine Mucus 3+ /HPF Lab Results 06/22/19 06/22/19 06/22/19 Range/Units 01:57 01:57 01:57 WBC 5.5 (4.5-11.0) K/mm3 RBC 3.68 (3.65-5.03) M/mm3 Hgb 11.5 (10.1-14.3) gm/dl Hct 33.6 (30.3-42.9) % MCV 91 (79-97) fl MCH 31 (28-32) pg MCHC 34 (30-34) % RDW 14.6 (13.2-15.2) % Plt Count 277 (140-440) K/mm3 Lymph % (Auto) 28.1 (13.4-35.0) % [place] % (Auto) 7.4 H (0.0-7.3) % Eos % (Auto) 0.2 (0.0-4.3) % Baso % (Auto) 0.8 (0.0-1.8) % Lymph # 1.6 (1.2-5.4) K/mm3 [place] # 0.4 (0.0-0.8) K/mm3 Eos # 0.0 (0.0-0.4) K/mm3 Baso # 0.0 (0.0-0.1) K/mm3 Seg Neutrophils % 63.5 (40.0-70.0) % Seg Neutrophils # 3.5 (1.8-7.7) K/mm3 Sodium 140 (137-145) mmol/L Potassium 3.9 (3.6-5.0) mmol/L Chloride 103.9 (98-107) mmol/L Carbon Dioxide 23 (22-30) mmol/L Anion Gap 17 mmol/L BUN 10 (7-17) mg/dL Creatinine 0.7 (0.7-1.2) mg/dL Estimated GFR > 60 ml/min BUN/Creatinine Ratio 14 % Glucose 106 H (65-100) mg/dL Calcium 9.0 (8.4-10.2) mg/dL Total Bilirubin 0.20 (0.1-1.2) mg/dL AST 18 (5-40) units/L ALT 7 (7-56) units/L Alkaline Phosphatase 39 (35-129) units/L Total Protein 7.5 (6.3-8.2) g/dL Albumin 4.5 (3.9-5) g/dL Albumin/Globulin Ratio 1.5 % Lipase 9 L (13-60) units/L HCG, Qual Negative (Negative) Urine Color (Yellow) Urine Turbidity (Clear) Urine pH (5.0-7.0) Ur Specific [place] (1.003-1.030) Urine Protein (Negative) mg/dL Urine Glucose (UA) (Negative) mg/dL Urine Ketones (Negative) mg/dL Urine Blood (Negative) Urine Nitrite (Negative) Urine Bilirubin (Negative) Urine Urobilinogen (<2.0) mg/dL Ur Leukocyte Esterase (Negative) Urine WBC (Auto) (0.0-6.0) /HPF Urine RBC (Auto) (0.0-6.0) /HPF U Epithel Cells (Auto) (0-13.0) /HPF Urine Mucus /HPF 06/22/19 Range/Units Unknown WBC (4.5-11.0) K/mm3 RBC (3.65-5.03) M/mm3 Hgb (10.1-14.3) gm/dl Hct (30.3-42.9) % MCV (79-97) fl MCH (28-32) pg MCHC (30-34) % RDW (13.2-15.2) % Plt Count (140-440) K/mm3 Lymph % (Auto) (13.4-35.0) % [place] % (Auto) (0.0-7.3) % Eos % (Auto) (0.0-4.3) % Baso % (Auto) (0.0-1.8) % Lymph # (1.2-5.4) K/mm3 [place] # (0.0-0.8) K/mm3 Eos # (0.0-0.4) K/mm3 Baso # (0.0-0.1) K/mm3 Seg Neutrophils % (40.0-70.0) % Seg Neutrophils # (1.8-7.7) K/mm3 Sodium (137-145) mmol/L Potassium (3.6-5.0) mmol/L Chloride (98-107) mmol/L Carbon Dioxide (22-30) mmol/L Anion Gap mmol/L BUN (7-17) mg/dL Creatinine (0.7-1.2) mg/dL Estimated GFR ml/min BUN/Creatinine Ratio % Glucose (65-100) mg/dL Calcium (8.4-10.2) mg/dL Total Bilirubin (0.1-1.2) mg/dL AST (5-40) units/L ALT (7-56) units/L Alkaline Phosphatase (35-129) units/L Total Protein (6.3-8.2) g/dL Albumin (3.9-5) g/dL Albumin/Globulin Ratio % Lipase (13-60) units/L HCG, Qual (Negative) Urine Color Yellow (Yellow) Urine Turbidity Clear (Clear) Urine pH 5.0 (5.0-7.0) Ur Specific [place] 1.025 (1.003-1.030) Urine Protein <15 mg/dl (Negative) mg/dL Urine Glucose (UA) Neg (Negative) mg/dL Urine Ketones Tr (Negative) mg/dL Urine Blood Sm (Negative) Urine Nitrite Neg (Negative) Urine Bilirubin Neg (Negative) Urine Urobilinogen 4.0 (<2.0) mg/dL Ur Leukocyte Esterase Sm (Negative) Urine WBC (Auto) 16.0 H (0.0-6.0) /HPF Urine RBC (Auto) 7.0 (0.0-6.0) /HPF U Epithel Cells (Auto) 10.0 (0-13.0) /HPF Urine Mucus 3+ /HPF Microbiology 06/22/19 04:17 Wet Prep - Final Cervix - Radiology Data Radiology results: report reviewed Cat Scan Report Signed Patient: YULIANA MEZA MR #: [id number] : 1990 Acct:[id number] Age/Sex: 29 / F ADM Date: 06/22/19 Loc: ED Attending Dr: Ordering Physician: SEPIDEH KELLEY Date of Service: 06/22/19 Procedure(s): CT abdomen pelvis w con Accession Number(s): [id number] cc: SEPIDEH KELLEY CT ABDOMEN AND PELVIS WITH CONTRAST INDICATION: RLQ abdominal pain, N/V CONTRAST: 100 cc Omnipaque 300 IV COMPARISON: None available. All CT scans at this location are performed using CT dose reduction for ALARA by means of automated exposure control. NOTE: Resolution is decreased and artifact is introduced by the patient's size. FINDINGS: Lung bases are clear. No pneumoperitoneum is seen. No significant abdominal wall herniation is noted. Tiny probable hepatic cysts are seen. Liver is at the upper end of the normal range in size and has a length of 17.7 cm. Spleen appears within normal limits. I see no abnormalities of the gallbladder, bile ducts, pancreas, adrenals, or kidneys. No urinary obstructive changes are seen. No evidence of bowel obstruction is noted. No lymphadenopathy is seen. Bilateral ovarian, probably follicular-type cysts are seen. A small amount of free fluid is noted which is nonspecific. No focal inflammatory changes are seen. Appendix appears within normal limits. IMPRESSION: No acute abnormalities are seen - Medical Decision Making Patient presented with lower abdominal pain that was nonspecific. Urine showed a few white blood cells but also epithelial cells. Patient had no urinary symptoms making UTI unlikely. Patient was unsure if she could possibly have an STD and preferred to be checked for this. On pelvic exam she had no cervical motion tenderness or adnexal tenderness making PID unlikely. Wet prep returned with few trichomonas which she will be treated for. She was given Rocephin and azithromycin to cover for cervicitis. Patient had no evidence of an appendicitis or other acute inflammatory process on CT imaging. Labs relatively normal. test was negative making ectopic unlikely. She was instruct ed to return the emerge part with any changing or worsening symptoms and otherwise follow-up with her primary care doctor. She was educated about safe sex including barrier protection every time and that she need to follow-up with the health department or her TRAFFIC SAFETY ADMINISTRATOR or primary care doctor for full STI work-up including HIV, hepatitis, syphilis and any other possible STI exposure. Patient verbalized understanding of the diagnosis, treatment plan and follow-up instructions and all of her questions were answered. - Differential Diagnosis UTi, PID, appendicitis, TOA Critical care attestation.: If time is entered above; I have spent that time in minutes in the direct care of this critically ill patient, excluding procedure time. ED Disposition Clinical Impression: Trichomoniasis Abdominal pain Qualifiers: Abdominal location: lower abdomen, unspecified Qualified Code(s): R10.30 - Lower abdominal pain, unspecified Disposition: TO HOME OR SELFCARE Is pt being admited?: No Condition: Stable Instructions: Abdominal Pain (ED) Prescriptions: metroNIDAZOLE [Flagyl TAB] 2,000 mg PO ONCE #4 tablet traMADoL [Ultram 50 MG tab] 50 mg PO Q6HR PRN #12 tablet PRN Reason: Pain Referrals: PRIMARY CAREMD [Primary Care Provider] - 3-5 Days [facility] [Provider Group] - 3-5 Days Forms: Work/School Release Form(ED) Time of Disposition: 06:02
--- NOTE | 2019-06-22 03:55 | Cat Scan Report ---
CT ABDOMEN AND PELVIS WITH CONTRAST INDICATION: RLQ abdominal pain, N/V CONTRAST: 100 cc Omnipaque 300 IV COMPARISON: None available. All CT scans at this location are performed using CT dose reduction for ALARA by means of automated e xposure control. NOTE: Resolution is decreased and artifact is introduced by the patient's size. FINDINGS: Lung bases are clear. No pneumoperitoneum is seen. No significant abdominal wall herniation is noted. Tiny probable hepatic cysts are seen. Liver is at the upper end of the normal range in siz e and has a length of 17.7 cm. Spleen appears within normal limits. I see no abnormalities of the gal lbladder, bile ducts, pancreas, adrenals, or kidneys. No urinary obstructive changes are seen. No torri dence of bowel obstruction is noted. No lymphadenopathy is seen. Bilateral ovarian, probably follicul ar-type cysts are seen. A small amount of free fluid is noted which is nonspecific. No focal inflamma tory changes are seen. Appendix appears within normal limits. IMPRESSION: No acute abnormalities are seen Signer Name: Rd Moralez MD Signed: 06/22/2019 3:51 AM Workstation Name: [id number]
[2019-06-22] MEDS ORDERED: LIDOCAINE-MPF (1%) 10 MG/1 ML VIAL 5 ML INFILTRATI ONE (05:59)
[2019-06-22] MEDS ORDERED: AZITHROMYCIN 1 GM ORAL PWDR PACKET PO ONE (05:59)
[2019-06-22 06:55] VITALS: BP 116/78
== END 2019-06-22 07:11 | disposition home or self-care (01) ==
LOC: ED 01:42
DX: A59.9 Trichomoniasis, unspecified (principal); R10.30 Lower abdominal pain, unspecified; G43.901 Migraine, unspecified, not intractable, with status migrainosus; D64.9 Anemia, unspecified; Z79.899 Other long term (current) drug therapy; Z98.890 Other specified postprocedural states; Z88.8 Allergy status to other drugs, medicaments and biological substances
CPT/HCPCS: 36415; 74177; 80053; 81001; 83690; 84703; 85025; 87086; 87210; 87591; 96372; 99284; J0696; Q9967

== ENCOUNTER 2019-11-05 20:36 | Emergency (ER) | payer SELFPAY ==
[2019-11-05 22:22] VITALS: BP 115/73
[2019-11-06] MEDS ORDERED: LIDOCAINE-MPF (1%) 10 MG/1 ML VIAL 5 ML INFILTRATI ONE (01:21)
[2019-11-06] MEDS ORDERED: DIPHtheria,PERTUSSIS(ACELL),TETANUS VACCINE/PF 0.5 ML VIAL IM ONE (01:21)
[2019-11-06] MEDS ORDERED: ACETAMINOPHEN 500 MG TAB PO ONE (01:22)
--- NOTE | 2019-11-06 02:04 | XRay Report ---
HISTORY:Puncture wound - foreign body stuck COMPARISON: None. TECHNIQUE: AP lateral and obliques views were obtained FINDINGS: Bones: No fracture or dislocation. Joint spaces: Maintained. Soft tissues: No significant abnormality. Additional findings: Foreign body the soft tissues overlying the distal first digit IMPRESSION: 1. Foreign body as noted Signer Name: Carmine Conroy MD Signed: 11/06/2019 1:59 AM Workstation Name: [id number]
--- NOTE | 2019-11-06 03:44 | Emergency Department Report ---
- General Chief Complaint: Puncture Wound Stated Complaint: NEEDLE W/ HOOK STUCK IN LT THUMB Source: patient Mode of arrival: Ambulatory Limitations: No Limitations - History of Present Illness Initial Comments: Patient is a nulliparous 29-year-old -[place] female with past medical history of migraine headaches who presents to the ED with complaint of acute onset of severe left arm pain after a metallic needle punctured the left thumb on palmar side and got stuck about 1 hour ago. Patient states that she tried several times to pull the needle out but the needle got stuck on the left thumb. Patient states that she was walking on a piece of hair and using the needle to aid her when the needle broke off and punctured her left thumb. Patient states that she is not up-to-date with her tetanus vaccinations. Patient denies numbness and tingling or weakness of left hand or left thumb. Patient denies dizziness, syncope, nausea and vomiting, fall, headache or neck pain. -: Sudden, hour(s) (1) Location: other (Left thumb) Extremity Location: Left: Hand (Left thumb puncture wound) Place: work Patient Tetanus UTD: No (Given during this visit) Context: accidental, sharp object use (Needle) Associated Symptoms: pain. denies: loss of feeling/numbness, suspect foreign body present, unable to move injured part, weakness followed by dizziness, nausea/vomiting, fever - Related Data Previous Rx's Medication Instructions Recorded Last Taken Type Ciprofloxacin HCl [Cipro] 500 mg PO BID 7 Days #13 tablet 08/27/17 Unknown Rx traMADoL [Ultram 50 MG tab] 50 mg PO Q6HR PRN #12 tablet 03/17/18 Unknown Rx metroNIDAZOLE [Flagyl TAB] 2,000 mg PO ONCE #4 tablet 06/22/19 Unknown Rx traMADoL [Ultram 50 MG tab] 50 mg PO Q6HR PRN #12 tablet 06/22/19 Unknown Rx Tramadol HCl/Acetaminophen 2 each PO Q6HR PRN #15 tablet 11/06/19 Unknown Rx [Ultracet] cephALEXin [Keflex] 500 mg PO Q12HR #20 cap 11/06/19 Unknown Rx Allergies Allergy/AdvReac Type Severity Reaction Status Date / Time ibuprofen Allergy Swelling Verified 04/28/15 16:00 ED Review of Systems ROS: Stated complaint: NEEDLE W/ HOOK STUCK IN LT THUMB Other details as noted in HPI Constitutional: denies: chills, fever Eyes: denies: eye pain, eye discharge, vision change ENT: denies: ear pain, throat pain Respiratory: denies: cough, shortness of breath, wheezing Cardiovascular: denies: chest pain, palpitations Endocrine: no symptoms reported Gastrointestinal: denies: abdominal pain, nausea, diarrhea Genitourinary: denies: urgency, dysuria, discharge Musculoskeletal: arthralgia (Left thumb pain due to a puncture wound with a metallic needle embedded and on the thumb). denies: back pain, joint swelling Skin: other (Puncture wound on left thumb with foreign body stuck in the thumb). denies: rash, lesions Neurological: denies: headache, weakness, paresthesias Psychiatric: denies: anxiety, depression Hematological/Lymphatic: denies: easy bleeding, easy bruising ED Past Medical Hx - Past Medical History Hx Headaches / Migraines: Yes Additional medical history: anemia - Surgical History Additional Surgical History: control implant, Implenon removed - Social History Smoking Status: Never Smoker Substance Use Type: None - Medications Home Medications: Home Medications Medication Instructions Recorded Confirmed Last Taken Type Ciprofloxacin HCl [Cipro] 500 mg PO BID 7 Days #13 tablet 08/27/17 Unknown Rx traMADoL [Ultram 50 MG tab] 50 mg PO Q6HR PRN #12 tablet 03/17/18 Unknown Rx metroNIDAZOLE [Flagyl TAB] 2,000 mg PO ONCE #4 tablet 06/22/19 Unknown Rx traMADoL [Ultram 50 MG tab] 50 mg PO Q6HR PRN #12 tablet 06/22/19 Unknown Rx Tramadol HCl/Acetaminophen 2 each PO Q6HR PRN #15 tablet 11/06/19 Unknown Rx [Ultracet] cephALEXin [Keflex] 500 mg PO Q12HR #20 cap 11/06/19 Unknown Rx ED Physical Exam - General Limitations: No Limitations General appearance: alert, in no apparent distress - Head Head exam: Present: atraumatic, normocephalic, normal inspection - Eye Eye exam: Present: normal appearance, PERRL, EOMI Pupils: Present: normal accommodation - ENT ENT exam: Present: normal exam, normal orophraynx, mucous membranes moist, TM's normal bilaterally, normal external ear exam - Neck Neck exam: Present: normal inspection, full ROM - Respiratory Respiratory exam: Present: normal lung sounds bilaterally. Absent: respiratory distress, wheezes, rales, chest wall tenderness, accessory muscle use - Cardiovascular Cardiovascular Exam: Present: regular rate, normal rhythm, normal heart sounds. Absent: systolic murmur, diastolic murmur, rubs, gallop - GI/Abdominal GI/Abdominal exam: Present: soft, normal bowel sounds. Absent: tenderness, guarding, hyperactive bowel sounds, hypoactive bowel sounds - Extremities Exam Extremities exam: Present: normal inspection, full ROM, tenderness (Palpable severe left thumb tenderness due to a puncture wound with foreign body stuck in the left thumb), normal capillary refill - Back Exam Back exam: Present: normal inspection, full ROM. Absent: tenderness, CVA tenderness (R), CVA tenderness (L), muscle spasm, paraspinal tenderness - Neurological Exam Neurological exam: Present: alert, oriented X3, CN II-XII intact, normal gait, reflexes normal - Psychiatric Psychiatric exam: Present: normal affect, normal mood - Skin Skin exam: Present: warm, dry, intact, normal color, other (Puncture wound on left thumb with foreign body embedded in the left thumb). Absent: rash ED Course Vital Signs 11/05/19 22:20 Temperature 98.3 F Pulse Rate 77 Respiratory 17 Rate Blood Pressure 115/73 O2 Sat by Pulse 96 Oximetry - Procedure Description Procedures done: Left thumb foreign body removal: 5 cc of 1% lidocaine solution was used after cleaning the thumb. Once anesthesia was fully achieved the foreign body, and metallic needle was removed successfully. The wound was then cleaned and a Band-Aid applied over the wound. Patient tolerated the procedure well. ED Medical Decision Making - Radiology Data Findings [facility] [address] [place] [address] XRay Report Signed Patient: YULIANA MEZA MR #: [id number] : 1990 Acct:[id number] Age/Sex: 29 / F ADM Date: 11/05/19 Loc: ED Attending Dr: Ordering Physician: SEPIDEH PINEDA Date of Service: 11/06/19 Procedure(s): XR finger(s) 2+V LT Accession Number(s): [id number] cc: SEPIDEH PINEDA Fluoro Time In Minutes: HISTORY:Puncture wound - foreign body stuck COMPARISON: None. TECHNIQUE: AP lateral and obliques views were obtained FINDINGS: Bones: No fracture or dislocation. Joint spaces: Maintained. Soft tissues: No significant abnormality. Additional findings: Foreign body the soft tissues overlying the distal first digit IMPRESSION: 1. Foreign body as noted Signer Name: Carmine Conroy MD Signed: 11/06/2019 1:59 AM Workstation Name: [id number] Transcribed By: REGULO Dictated By: Carmine Conroy MD Electronically Authenticated By: Carmine Conroy MD Signed Date/Time: 11/06/19158 DD/ 7 TD/TT: - Medical Decision Making This is a nulliparous 29-year-old -[place] female with past medical history of migraine headaches who presents to the ED with complaint of acute onset of severe left arm pain after a metallic needle punctured the left thumb o n palmar side and got stuck about 1 hour ago. Patient states that she tried several times to pull the needle out but the needle got stuck on the left thumb. Patient states that she was walking on a piece of hair and using the needle to aid her when the needle broke off and punctured her left thumb. Patient states that she is not up-to-date with her tetanus vaccinations. In the ED, patient is alert and oriented x3 and is not in distress but appears to be in significant pain. Patient was treated for pain in the ED and also received booster tetanus vaccination. Left hand x-ray shows foreign body in the soft tissues overlying the distal first digit. There are however no acute fractures or subluxations. There foreign body was removed successfully from the patient's left thumb after application of local anesthetic lidocaine 1% solution. Patient tolerated the procedure well. Patient was discharged home on pain medication and prophylactic antibiotics and advised to follow-up with her primary care physician in 5 to 7 days for reevaluation or return to the ED immediately if symptoms get worse. - Differential Diagnosis Puncture wound; laceration; foreign body in finger; fractured finger Critical care attestation.: If time is entered above; I have spent that time in minutes in the direct care of this critically ill patient, excluding procedure time. ED Disposition Clinical Impression: Puncture wound of left thumb with foreign body without damage to nail Qualifiers: Encounter type: initial encounter Qualified Code(s): S61.042A - Puncture wound with foreign body of left thumb without damage to nail, initial encounter Disposition: TO HOME OR SELFCARE Is pt being admited?: No Does the pt Need Aspirin: No Condition: Stable Instructions: Puncture Wound (ED), Soft Tissue Foreign Body (ED) Additional Instructions: Take medication with food, drink plenty of fluids and follow-up with your primary care physician in 7 to 10 days for reevaluation. Return to the ED immediately if symptoms get worse. Prescriptions: cephALEXin [Keflex] 500 mg PO Q12HR #20 cap Tramadol HCl/Acetaminophen [Ultracet] 2 each PO Q6HR PRN #15 tablet PRN Reason: Pain Referrals: [facility] [Provider Group] - 7-10 days Time of Disposition: 03:49 Print Language: BENINESE
== END 2019-11-06 04:00 | disposition home or self-care (01) ==
LOC: ED 20:36
DX: S61.042A Puncture wound with foreign body of left thumb without damage to nail, initial encounter (principal); D64.9 Anemia, unspecified; G43.909 Migraine, unspecified, not intractable, without status migrainosus; Z88.6 Allergy status to analgesic agent; Z98.890 Other specified postprocedural states; Z79.899 Other long term (current) drug therapy; X58.XXXA Exposure to other specified factors, initial encounter; Y93.89 Activity, other specified; Y92.89 Other specified places as the place of occurrence of the external cause; Y99.0 Civilian activity done for income or pay
CPT/HCPCS: 90471; 90715